=== PATIENT | female | born 1995 | race Hispanic/Latino ===

== ENCOUNTER 2019-09-14 09:44 | Emergency (ER) | payer OTHER ==
[2019-09-14] MEDS ORDERED: ALBUTEROL 2.5 MG/3 ML NEB SOL ONE (10:13)
[2019-09-14] MEDS ORDERED: IPRATROPIUM BROM 0.5MG/2.5ML ONE (10:13)
--- NOTE | 2019-09-14 11:33 | ER ---
Nurse's Notes [facility] Name: Paris Julian Age: 24 yrs Sex: Female : 1995 Arrival Date: 09/14/2019 Time: 09:48 Bed 15 Private MD: Unknown, Unknown Diagnosis: Bronchitis, not specified as acute or chronic;Asthma Presentation: 09/14 10:02 Presenting complaint: Patient states: sore throat for 2-3 days, chest pain that started em yesterday and coughing up dark mucus, unknown if having fever. Transition of care: patient was not received from another setting of care. Onset of symptoms was September 11, 2019. Risk Assessment: Do you want to hurt yourself or someone else? Patient reports no desire to harm self or others. Initial Sepsis Screen: Does the patient meet any 2 criteria? RR > 20 per min. No. Patient's initial sepsis screen is negative. Does the patient have a suspected source of infection? No. Patient's initial sepsis screen is negative. Care prior to arrival: None. 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 - Social history:: Smoking status: Patient uses tobacco products, denies chronic smoking, but will smoke occasionally. - Ebola Screening: : Patient negative for fever greater than or equal to 101.5 degrees Fahrenheit, and additional compatible Ebola Virus Disease symptoms Patient denies exposure to infectious person Patient denies travel to an Ebola-affected area in the 21 days before illness onset No symptoms or risks identified at this time. Screenin:02 Abuse screen: Denies threats or abuse. Nutritional screening: No deficits noted. em Tuberculosis screening: No symptoms or risk factors identified. Fall Risk None identified. Assessment: 10:02 General: Appears in no apparent distress. comfortable, Behavior is calm, cooperative, em Denies fever. Pain: Complains of pain in chest and throat Pain does not radiate. Pain currently is 4 out of 10 on a pain scale. Quality of pain is described as shooting, stabbing, Pain began 1 day ago. Aggravated by coughing. Neuro: Level of Consciousness is awake, alert, obeys commands, Oriented to person, place, time, situation, Appropriate for age. Cardiovascular: Heart tones S1 Capillary refill < 3 seconds Patient's skin is warm and dry. Rhythm is sinus tachycardia. Respiratory: Reports cough that is productive, pain with cough Airway is patent Respiratory effort is even, unlabored, Respiratory pattern is regular, symmetrical, Breath sounds are clear bilaterally. GI: Patient currently denies nausea, vomiting. EENT: Nares are clear Oral mucosa is moist. Throat is reddened bilaterally. Derm: Skin is intact, is healthy with good turgor, Skin is pink, warm \T\ dry. Musculoskeletal: Capillary refill < 3 seconds. 10:02 Reassessment: I agree with assessment completed by Tre Mckeon LVN . aa5 10:55 Reassessment: Patient appears in no apparent distress at this time. wheeled to x-ray em dept. Vital Signs: 10:05 BP 130 / 91; Pulse 115; Resp 18; Temp 98.5(O); Pulse Ox 100% on R/A; Weight 65.77 kg; em Height 5 ft. 1 in. (154.94 cm); Pain 4/10; 11:12 BP 119 / 89; Pulse 99; Resp 19; Pulse Ox 100% on R/A; em 10:05 Body Mass Index 27.40 (65.77 kg, 154.94 cm) em ED Course: 09:48 Patient arrived in ED. ag5 09:49 Unknown, Unknown is Private Physician. ag5 09:57 Tre Mckeon LVN is Primary Nurse. em 10:00 Linda Freitas FNP-C is PHCP. kb 10:00 Shaggy West MD is Attending Physician. kb 10:02 Patient has correct armband on for positive identification. Placed in gown. Bed in low em position. Call light in reach. Pulse ox on. NIBP on. 10:02 Patient maintains SpO2 saturation greater than 95% on room air. em 10:05 Arm band placed on. em 10:10 Triage completed. aa5 10:17 Flu and/or RSV swab sent to lab. Strep swab sent to lab. em 11:08 Chest Pa And Lat (2 Views) XRAY In Process Unspecified. EDMS 11:42 No provider procedures requiring assistance completed. Patient did not have IV access em during this emergency room visit. Administered Medications: 10:18 Drug: Albuterol 2.5 mg Route: Inhalation; em 10:33 Follow up: Response: No adverse reaction; Marked relief of symptoms em 10:18 Drug: AtroVENT Aerosol 0.5 mg Route: Inhalation; em 10:33 Follow up: Response: No adverse reaction; Marked relief of symptoms em Outcome: 11:32 Discharge ordered by . sigrid 11:42 Discharged to home ambulatory. em 11:42 Condition: good 11:42 Discharge instructions given to patient, Instructed on discharge instructions, follow up and referral plans. medication usage, Demonstrated understanding of instructions, follow-up care, medications, Prescriptions given X 3. 11:42 Patient left the ED. em Signatures: Dispatcher [employer] EDWA Linda Freitas, SCOUT EXECUTIVE-C SCOUT EXECUTIVE-Tre Kay, CASE REPAIRER CASE REPAIRER Glenny Colon, RN RN aa5 Luis, Savanah 5
--- NOTE | 2019-09-14 11:33 | EDPHYS ---
Physician Documentation [facility] Name: Paris Julian Age: 24 yrs Sex: Female : 1995 Arrival Date: 09/14/2019 Time: 09:48 Bed 15 Private MD: Unknown, Unknown ED Physician Shaggy West HPI: 09/14 11:02 This 24 yrs old Female presents to ER via Ambulatory with complaints of Cough, kb Chest Pain. 11:02 The patient or guardian reports cough, flu symptoms, myalgias. Onset: The kb symptoms/episode began/occurred 3 day(s) ago. Severity of symptoms: At their worst the symptoms were mild, moderate, in the emergency department the symptoms are unchanged. Modifying factors: The symptoms are alleviated by nothing, the symptoms are aggravated by nothing. Associated signs and symptoms: Pertinent positives: sore throat, Pertinent negatives: chest pain, diarrhea, ear ache, fever, nausea, rhinorrhea, vomiting. The patient has not experienced similar symptoms in the past. The patient has not recently seen a physician. 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 - Social history:: Smoking status: Patient uses tobacco products, denies chronic smoking, but will smoke occasionally. - Ebola Screening: : Patient negative for fever greater than or equal to 101.5 degrees Fahrenheit, and additional compatible Ebola Virus Disease symptoms Patient denies exposure to infectious person Patient denies travel to an Ebola-affected area in the 21 days before illness onset No symptoms or risks identified at this time. ROS: 11:01 Constitutional: Negative for fever, chills, and weight loss, Neck: Negative for injury, kb pain, and swelling, Cardiovascular: Negative for chest pain, palpitations, and edema, Abdomen/GI: Negative for abdominal pain, nausea, vomiting, diarrhea, and constipation, Back: Negative for injury and pain, MS/Extremity: Negative for injury and deformity, Skin: Negative for injury, rash, and discoloration, Neuro: Negative for headache, weakness, numbness, tingling, and seizure. 11:01 ENT: Positive for sore throat. 11:01 Respiratory: Positive for cough, shortness of breath, wheezing. Exam: 11:02 Constitutional: This is a well developed, well nourished patient who is awake, alert, kb and in no acute distress. Head/Face: Normocephalic, atraumatic. ENT: Nares patent. No nasal discharge, no septal abnormalities noted. Tympanic membranes are normal and external auditory canals are clear. Oropharynx with no redness, swelling, or masses, exudates, or evidence of obstruction, uvula midline. Mucous membranes moist. Neck: Trachea midline, no thyromegaly or masses palpated, and no cervical lymphadenopathy. Supple, full range of motion without nuchal rigidity, or vertebral point tenderness. No Meningismus. Chest/axilla: Normal chest wall appearance and motion. Nontender with no deformity. No lesions are appreciated. Cardiovascular: Regular rate and rhythm with a normal S1 and S2. No gallops, murmurs, or rubs. Normal PMI, no JVD. No pulse deficits. Respiratory: Lungs have equal breath sounds bilaterally, clear to auscultation and percussion. No rales, rhonchi or wheezes noted. No increased work of breathing, no retractions or nasal flaring. Abdomen/GI: Soft, non-tender, with normal bowel sounds. No distension or tympany. No guarding or rebound. No evidence of tenderness throughout. Skin: Warm, dry with normal turgor. Normal color with no rashes, no lesions, and no evidence of cellulitis. MS/ Extremity: Pulses equal, no cyanosis. Neurovascular intact. Full, normal range of motion. Neuro: Awake and alert, GCS 15, oriented to person, place, time, and situation. Cranial nerves II-XII grossly intact. Motor strength 5/5 in all extremities. Sensory grossly intact. Cerebellar exam normal. Normal gait. Vital Signs: 10:05 BP 130 / 91; Pulse 115; Resp 18; Temp 98.5(O); Pulse Ox 100% on R/A; Weight 65.77 kg; em Height 5 ft. 1 in. (154.94 cm); Pain 4/10; 11:12 BP 119 / 89; Pulse 99; Resp 19; Pulse Ox 100% on R/A; em 10:05 Body Mass Index 27.40 (65.77 kg, 154.94 cm) em MDM: 10:00 Patient medically screened. kb 11:01 Data reviewed: vital signs, nurses notes. Data interpreted: Pulse oximetry: on room air kb is 100 %. Interpretation: normal. 11:31 Counseling: I had a detailed discussion with the patient and/or guardian regarding: the kb historical points, exam findings, and any diagnostic results supporting the discharge/admit diagnosis, lab results, radiology results, the need for outpatient follow up, a family practitioner, to return to the emergency department if symptoms worsen or persist or if there are any questions or concerns that arise at home. 09/14 10:09 Order name: Flu; Complete Time: 11:11 kb 09/14 10:09 Order name: Strep; Complete Time: 10:35 kb 09/14 10: Order name: Chest Pa And Lat (2 Views) XRAY kb 09/14 10:35 Order name: Throat Culture EDMS Administered Medications: 10:18 Drug: Albuterol 2.5 mg Route: Inhalation; em 10:33 Follow up: Response: No adverse reaction; Marked relief of symptoms em 10:18 Drug: AtroVENT Aerosol 0.5 mg Route: Inhalation; em 10:33 Follow up: Response: No adverse reaction; Marked relief of symptoms em Disposition: 14:01 Co-signature as Attending Physician, Shaggy West MD. rn Disposition: 09/14/19 11:32 Discharged to Home. Impression: Bronchitis, not specified as acute or chronic, Asthma. - Condition is Stable. - Discharge Instructions: Acute Bronchitis, [id number], Asthma, Adult, [id number], Viral Respiratory Infection, [id number]. - Prescriptions for Prednisone 20 mg Oral Tablet - take 1 tablet by ORAL route once daily for 5 days; 5 tablet. Zithromax Z- Baljit 250 mg Oral Tablet - take 1 tablet by ORAL route as directed for 5 days Day 1 - take two (2) tablets one time. Day 2, 3, 4 , 5 take one (1) tablet once daily.; 6 tablet. Albuterol Sulfate 90 mcg/actuation - inhale 1-2 puff by INHALATION route every 4-6 hours; 1 Inhaler. - Medication Reconciliation Form, Thank You Letter, Antibiotic Education, Prescription Opioid Use form. - Follow up: Emergency Department; When: As needed; Reason: Worsening of condition. Follow up: Private Physician; When: 2 - 3 days; Reason: Recheck today's complaints, Continuance of care, Re-evaluation by your physician. Signatures: Dispatcher [employer] Linda Vera, DOMENICO-Marck DRAIN TILE MACHINE OPERATOR-Khrisb Tre Mckeon, CMO & PRESIDENT CMO & PRESIDENT em Shaggy West MD MD professional golf tournament player: (The following items were deleted from the chart) 11:42 11:32 09/14/2019 11:32 Discharged to Home. Impression: Bronchitis, not specified as em acute or chronic; Asthma. Condition is Stable. Forms are Medication Reconciliation Form, Thank You Letter, Antibiotic Education, Prescription Opioid Use. Follow up: Emergency Department; When: As needed; Reason: Worsening of condition. Follow up: Private Physician; When: 2 - 3 days; Reason: Recheck today's complaints, Continuance of care, Re-evaluation by your physician. kb
[2019-09-14 11:48] VITALS: TEMP 98.5; O2SAT 100
[2019-09-14 11:49] VITALS: BP 119/89
--- NOTE | 2019-09-14 12:17 | RAD REPORT ---
EXAM DESCRIPTION: Shailesh Garrett (2 Views)09/14/2019 11:08 am CLINICAL HISTORY: Cough COMPARISON: None FINDINGS: The lungs appear clear of acute infiltrate. The heart is normal size Mild to moderate scoliosis involves the spine IMPRESSION: No acute abnormalities displayed
== END 2019-09-14 11:42 | disposition home or self-care (01) ==
LOC: ER 09:44
DX: J40 Bronchitis, not specified as acute or chronic (principal); J45.909 Unspecified asthma, uncomplicated; Z72.0 Tobacco use
CPT/HCPCS: 71046; 87070; 87081; 87804; 99285